=== PATIENT | female | born 1990 | race Caucasian/White ===

== ENCOUNTER 2021-10-03 09:02 | Outpatient (REF) | payer OTHER, SELFPAY ==
[2021-10-03 10:50] LABS: MANUAL DIFF FLAG NO
[2021-10-03 10:58] LABS: Basophils Percent Auto 0.4 % (0-2); Eosinophils Absolute Auto 0.1 X10*3/uL (0.0-0.4); Eosinophils Percent Auto 0.9 % (0-4); Hematocrit 36.9 % (37.0-47.0); Hemoglobin 12.4 g/dl (12.0-16.0); Imm Gran Abs Auto 0.02 X10*3/uL (0.00-0.03); Imm Gran Pct Auto 0.3 % (0.0-0.4); Lymphocytes Absolute Auto 2.4 X10*3/uL (1.2-4.9); Lymphocytes Percent Auto 34.3 % (20-40); Mean Corpuscular HGB Conc 33.6 g/dl (31.0-35.0); Mean Corpuscular Hemoglobin 31.3 pg (27.0-33.0); Mean Corpuscular Volume 93.2 fL (80.0-98.0); Mean Platelet Volume 11.7 fL (9.4-12.3); Monocytes Absolute Auto 0.5 X10*3/uL (0.1-1.2); Monocytes Percent Auto 7.5 % (2-11); Neutrophils Absolute Auto 3.9 x10*3/uL (2.0-8.3); Neutrophils Percent Auto 56.6 % (45-73); Platelet Count 302 X10*3/uL (160-400); Red Blood Count 3.96 X10*6/uL (4.20-5.50); Red Cell Distribution Width 11.7 % (11.0-16.0); White Blood Count 6.9 X10*3/uL (4.8-10.8)
[2021-10-03 11:10] LABS: Alanine Aminotransferase 18 U/L (0-31); Albumin Level 4.2 g/dL (3.5-5.0); Alkaline Phosphatase 46 U/L (39-117); Anion Gap 12 (12-20); Aspartate Amino Transferase 20 U/L (5-31); Blood Urea Nitrogen 15 mg/dL (9-16); Calcium 9.6 mg/dL (8.4-10.2); Carbon Dioxide 22 mmol/L (22-29); Chloride 105 mmol/L (96-108); Cholesterol 199 mg/dL; Estimated Glomerular Filt Rate > 60; Glucose Fasting 80 mg/dL (60-99); HDL Cholesterol 69 mg/dL; LDL Cholesterol Calculated 115 mg/dl; Potassium 4.7 mmol/L (3.3-5.1); Sodium 134 mmol/L (135-145); Total Protein 6.8 g/dL (6.5-8.0); Triglycerides 79 mg/dL
[2021-10-03 11:32] LABS: Thyroid Stimulating Hormone 1.57 uIU/mL (0.32-4.0); Vitamin D 25-OH Total 30.4 ng/mL (>30)
== END 2021-10-03 09:03 | disposition home or self-care (01) ==
LOC: HO.MANLDS 09:02
PROVIDERS: PCP Physician Assistant; Visit Provider Physician Assistant
DX: Z00.00 Encounter for general adult medical examination without abnormal findings (principal)
CPT/HCPCS: 36415; 80053; 80061; 82306; 84439; 84443; 85025

== ENCOUNTER 2023-06-25 07:56 | Outpatient (REF) | payer OTHER, SELFPAY ==
[2023-06-25 14:17] LABS: Free T4 (Free Thyroxine) 0.99 ng/dL (0.71-1.85)
[2023-06-26 12:19] LABS: DHEA Sulfate 124 mcg/dL (19-237)
[2023-06-26 12:34] LABS: Triiodothyronine T3 Free 3.6 pg/mL (2.3-4.2)
[2023-06-26 13:03] LABS: Lutenizing Hormone 3.3 mIU/mL; Prolactin 11.7 ng/mL
[2023-06-28 19:30] LABS: Thyroid Peroxidase Antibodies <1 IU/mL (<9)
[2023-06-30 15:09] LABS: Testosterone, Total 31 ng/dL (2-45)
[2023-07-01 18:38] LABS: Progesterone <0.1 ng/mL
[2023-07-01 22:19] LABS: Estrogen 67 pg/mL
[2023-07-01 23:24] LABS: Estradiol Ultra Sensitive 3 pg/mL
[2023-07-02 00:28] LABS: Cortisol, Free 0.57 mcg/dL
== END 2023-06-25 07:57 | disposition home or self-care (01) ==
LOC: HO.MANLDS 07:56
PROVIDERS: Visit Provider Physician Assistant
DX: N94.5 Secondary dysmenorrhea (principal)
CPT/HCPCS: 36415; 82530; 82627; 82670; 82672; 83002; 84144; 84146; 84403; 84439; 84443; 84481; 86376